=== PATIENT | female | born 1985 | race Caucasian/White ===

== ENCOUNTER 2016-09-09 07:31 | Emergency (ER) | payer OTHER ==
[~2016-09-09 07:31] MED LIST: CIPRO PO; DARVOCET-N 1001 TAB PO; KEFLEX500 M1 PO; KEFLEX500 MG PO; METHADONE PO; NO MEDICATIONS; NORCO 7.5-3251 EACH PO; NU-GAUZE1 BANDAG6 TOP
== END 2016-09-09 07:41 | disposition home or self-care (01) ==
LOC: CED 07:31
DX: R10.9 Unspecified abdominal pain (principal); Z88.2 Allergy status to sulfonamides; Z79.899 Other long term (current) drug therapy
CPT/HCPCS: 99284